=== PATIENT | male | born 1980 | race African-American/Black ===

== ENCOUNTER 2017-07-03 20:13 | Emergency (ER) | payer BC, OTHER ==
[2017-07-03 20:17] VITALS: BP 165/76; PULSE 65; RESP 16; TEMP 98.1; O2SAT 97
[2017-07-03] MEDS ORDERED: CYCL10TA PO (20:54)
[2017-07-03] MEDS ORDERED: DICL75TA PO (20:54)
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
[2017-07-03] MEDS ORDERED: NAPROXEN 500 MG TAB PO ONE (21:00)
[2017-07-03] MEDS ORDERED: CYCLOBENZAPRINE HCL 10 MG TAB PO ONE (21:00)
[2017-07-03] MEDS ORDERED: ELVITAB PO (21:21)
== END 2017-07-03 21:37 | disposition home or self-care (01) ==
LOC: NEPK 20:13
DX: S16.1XXA Strain of muscle, fascia and tendon at neck level, initial encounter (principal); M79.602 Pain in left arm; S93.401A Sprain of unspecified ligament of right ankle, initial encounter; V43.52XA Car driver injured in collision with other type car in traffic accident, initial encounter
CPT/HCPCS: 99284